=== PATIENT | female | born 1950 | race Caucasian/White ===

== ENCOUNTER 2021-02-21 01:12 | Emergency (ER) | payer OTHER ==
[~2021-02-21] VITALS: Ht 149.9 cm; Wt 67.6 kg
[2021-02-21 01:28] VITALS: BP_SYST 149
--- NOTE | 2021-02-21 01:28 | NUR ---
Placed in room 8 . Placed on client server developer, blood pressure machine and pulse oximeter. To gown for exam. Side rails up. Report given to CHAGO VELEZ.
--- NOTE | 2021-02-21 01:29 | NUR ---
Came in ER ambulatory from home accompanied by this 70 year old female, AAOX4, breathing spontaneously at room air, not in distress noted. WIth chief compliants of epigastric pain, nausea, vomiting 3 hours prior to ER after eating hotdog, known with hyperlipidemia, allergy to aspirin, vital signs stable
[2021-02-21] MEDS ORDERED: MORPHINE 4 MG INJ. 4 MG/ML VIAL IM ONE (01:30)
[2021-02-21] MEDS ORDERED: ONDANSETRON 4 MG ODT TAB PO ONE (01:30)
--- NOTE | 2021-02-21 01:39 | NUR ---
Dr. Montgomery at bedside for MSE.
[2021-02-21] MEDS ORDERED: MAG HYDROX/AL HYDROX/SIMETH 30 ML, DICYCLOMINE HCL 20 MG, LIDOCAINE VISCOUS 2% 15ML (PO... PO ONE ×3 (02:00)
[2021-02-21] MEDS ORDERED: OMEP40CA13 PO (02:07)
[2021-02-21] MEDS ORDERED: ONDA4TAB5 PO (02:07)
--- NOTE | 2021-02-21 02:15 | NUR ---
Still with abdominal pain 10/10 and nauseated, Dr. Montgomery made aware
--- NOTE | 2021-02-21 02:30 | NUR ---
# 20 gauge angiocath placed to RIGHT AC. Use of asceptic technique. Opsite placed over site. Blood return noted. Blood for lab drawn from site. Flushed with 10 cc of normal saline. No evidence of infiltration noted. Patient tolerated well.
--- NOTE | 2021-02-21 02:40 | NUR ---
All [employer] scanner is not working, enter it manually for med administration
[2021-02-21] MEDS ORDERED: ONDANSETRON HCL 4 MG/2 ML VIAL IVP ONE (02:45)
[2021-02-21] MEDS ORDERED: MORPHINE 4 MG INJ. 4 MG/ML VIAL IVP ONE (02:45)
[2021-02-21 03:00] LABS: BASOPHILS % (AUTO) 0.3 % (0.0-2.0); HEMATOCRIT 42.9 % (36-48); HEMOGLOBIN 14.6 g/dL (12.0-16.0); LYMPHOCYTES # (AUTO) 1.3 K/uL (1.0-5.5); LYMPHOCYTES % (AUTO) 10.1 % (20.5-51.5); MEAN CORPUSCULAR HEMOGLOBIN 30 pg (27-31); MEAN CORPUSCULAR HGB CONC 34 % (32-36); MEAN CORPUSCULAR VOLUME 88 fL (79.0-98.0); MONOCYTES # (AUTO) 0.2 K/uL (0.0-1.0); MONOCYTES % (AUTO) 1.9 % (1.7-9.3); NEUTROPHILS # (AUTO) 11.4 K/uL (1.8-7.7); NEUTROPHILS % (AUTO) 87.7 % (40.0-70.0); PLATELET COUNT (AUTO) 214 K/uL (130-430); RED BLOOD CELL COUNT(AUTO) 4.89 MIL/uL (4.2-6.2); RED CELL DISTRIBUTION WIDTH 12.7 % (9.0-15.0)
[2021-02-21 03:10] LABS: CALCIUM 8.9 mg/dL (8.4-11.0); CREATININE 0.65 mg/dL (0.55-1.30); POTASSIUM 3.8 mmol/L (3.5-5.1)
[2021-02-21 03:14] LABS: ALBUMIN 3.7 g/dL (3.4-4.8); TOTAL BILIRUBIN 0.4 mg/dL (0.0-1.0)
--- NOTE | 2021-02-21 03:21 | NUR ---
Re-assesed by Dr. Montgomery, for discharge
[2021-02-21] MEDS ORDERED: HYDR-3917 PO (03:25)
[2021-02-21 03:48] VITALS: BP_SYST 149
--- NOTE | 2021-02-21 03:48 | NUR ---
Patient given written and verbal discharge instructions and verbalizes understanding. ER MD discussed with patient the results and treatment provided. Patient in stable condition. ID arm band removed. IV catheter removed intact and dressing applied, no active bleeding. Rx of ZOFRAN, OMEPRAZOLE, NORCO given. Patient educated on pain management and to follow up with PMD. Pain Scale 0/10. Opportunity for questions provided and answered. Medication side effect fact sheet provided.
== END 2021-02-21 03:48 | disposition home or self-care (01) ==
LOC: SED 01:12
DX: R10.13 Epigastric pain (principal); R11.2 Nausea with vomiting, unspecified; Z88.6 Allergy status to analgesic agent; Z79.899 Other long term (current) drug therapy
CPT/HCPCS: 36415; 80053; 83690; 85025; 96372; 96374; 96375; 99284; J2001; J2270; J2405; Q0162